=== PATIENT | female | born 1995 | race Caucasian/White ===

== ENCOUNTER 2018-03-25 17:05 | Outpatient (CLI) | payer BC ==
[~2018-03-25] VITALS: Ht 175.3 cm; Wt 90.0 kg
[2018-03-25] MEDS ORDERED: LORA10TA62 PO (19:56)
[2018-03-25] MEDS ORDERED: PREN-59 PO (19:57)
[2018-03-25] MEDS ORDERED: RHOGAM FROM BLOOD BANK 1 NOTE EA IM/IV ONE (21:00)
== END 2018-03-25 21:21 | disposition home or self-care (01) ==
LOC: LDOP 17:05
PROVIDERS: ATTEND Obstetrics & Gynecology
DX: O36.0120 Maternal care for anti-D [Rh] antibodies, second trimester, not applicable or unspecified (principal); O26.892 Other specified pregnancy related conditions, second trimester; V49.88XA Car occupant (driver) (passenger) injured in other specified transport accidents, initial encounter; Z3A.21 21 weeks gestation of pregnancy; Y93.89 Activity, other specified; Y92.488 Other paved roadways as the place of occurrence of the external cause; Y99.8 Other external cause status
CPT/HCPCS: 36415; 59025; 85460; 86850; 86900; 96372; 99201; J2790; G0463